=== PATIENT | female | born 2000 | race African-American/Black ===

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

== ENCOUNTER 2021-08-07 19:24 | Inpatient (IN) | payer MEDICAID, OTHER ==
[~2021-08-07] VITALS: Ht 175.3 cm; Wt 55.3 kg
[2021-08-07 20:30] LABS: BASOPHILS % (AUTO) 0.3 % (0.0-2.0); EOSINOPHILS % (AUTO) 0.1 % (1.0-6.0); HEMATOCRIT 38.9 % (36-46); LYMPHOCYTES # (AUTO) 1.3 K/uL (1.0-4.8); LYMPHOCYTES % (AUTO) 22.1 % (22.0-44.0); MEAN CORPUSCULAR HEMOGLOBIN 28.5 pg (26.0-34.0); MEAN CORPUSCULAR HGB CONC 33.5 G/dL (31.0-37.0); MEAN CORPUSCULAR VOLUME 85 fL (80-100); MONOCYTES # (AUTO) 0.4 K/uL (0.1-1.0); MONOCYTES % (AUTO) 7.1 % (2.0-9.0); NEUTROPHILS # (AUTO) 4.1 K/uL (1.8-7.7); NEUTROPHILS % (AUTO) 70.4 % (40.0-70.0); PLATELET COUNT (AUTO) 212 K/uL (150-450); RED BLOOD CELL COUNT(AUTO) 4.57 MIL/uL (4.00-5.20); RED CELL DISTRIBUTION WIDTH 13.7 % (11.5-14.5)
[2021-08-07 20:37] LABS: ANION GAP 10 mmol/L (8-16); CARBON DIOXIDE 25 mmol/L (22-29); CHLORIDE 103 mmol/L (98-107); CREATININE 0.82 mg/dL (0.60-1.30); GLOMERULAR FILTR. RATE CALC > 60 mL/min (>60); GLUCOSE,RANDOM 92 mg/dL (70-110); POTASSIUM 4.3 mmol/L (3.5-5.1); SODIUM SERUM 138 mmol/L (136-145); UREA NITROGEN, BLOOD 8 mg/dL (7-18)
[2021-08-07 20:47] LABS: ALANINE AMINOTRANSFERASE 11 U/L (12-78); ALBUMIN 3.8 g/dL (3.4-5.0); ALKALINE PHOSPHATASE 86 U/L (46-116); ASPARTATE AMINOTRANSFERASE 16 U/L (15-37); BILIRUBIN,TOTAL 0.3 mg/dL (0.1-1.0); HCG,QUANTITATIVE < 1 mIU/mL (0-6); TOTAL PROTEIN, SERUM 7.9 g/dL (6.4-8.2)
[2021-08-07 20:48] LABS: ACETAMINOPHEN < 2 mcg/mL (10-30)
[2021-08-07] MEDS ORDERED: ZOLPIDEM TARTRATE 10 MG TABLET PO PRN (21:30)
[2021-08-07 21:34] LABS: SALICYLATE < 2.8 mg/dL (2.8-20.0)
[2021-08-07 21:38] LABS: COVID AG,FIA SOURCE NASOPHARYNGEAL
[2021-08-07] MEDS ORDERED: ONDANSETRON HCL 4 MG/2 ML VIAL IVP ONE (22:15)
[2021-08-07 23:59] LABS: AMPHET/METH SCREEN,URINE NEGATIVE (NEGATIVE); BARBITURATE SCREEN, URINE NEGATIVE (NEGATIVE); BENZODIAZEPINES SCREEN,URINE NEGATIVE (NEGATIVE); CANNABINOID SCREEN,URINE POSITIVE (NEGATIVE); COCAINE SCREEN,URINE NEGATIVE (NEGATIVE); METHADONE SCREEN, URINE NEGATIVE (NEGATIVE); OPIATE SCREEN,URINE NEGATIVE (NEGATIVE)
[2021-08-08 00:03] LABS: APPEARANCE,URINE CLEAR (CLEAR); BILIRUBIN,URINE NEGATIVE (NEGATIVE); GLUCOSE, URINE (UA) NEGATIVE (NEGATIVE); KETONES,URINE 15 mg/dL (NEGATIVE); LEUKOCYTE ESTERASE ,URINE NEGATIVE (NEGATIVE); NITRATE,URINE NEGATIVE (NEGATIVE); OCCULT BLOOD,URINE NEGATIVE (NEGATIVE); PROTEIN,URINE NEGATIVE (NEGATIVE); UROBILINOGEN,URINE 0.2 mg/dL (<=1.0)
[2021-08-08 00:05] LABS: PHENCYCLIDINE SCREEN,URINE NEGATIVE (NEGATIVE)
[2021-08-08 02:35] VITALS: BP 132/80
[2021-08-08] MEDS ORDERED: PNEUMOCOCCAL VACCINE POLYVALENT 0.5 ML VIAL [PPSV23] IM. ONE (05:00)
[2021-08-08] MEDS ORDERED: MAGNESIUM HYDROXIDE SUSPENSION 30 ML UDCUP PO PRN (06:00)
[2021-08-08] MEDS ORDERED: BENZOCAINE/MENTHOL LOZENGE PO PRN (06:00)
[2021-08-08] MEDS ORDERED: ALBUTEROL SULFATE HFA 90 MCG/PUFF 8 GM INHALER IH PRN (06:00)
[2021-08-08] MEDS ORDERED: OMEPRAZOLE 20 MG CAPSULE PO PRN (06:00)
[2021-08-08] MEDS ORDERED: ONDANSETRON HCL 4 MG TABLET PO PRN (06:00)
[2021-08-08] MEDS ORDERED: PETROLATUM,WHITE 28 GM JELLY TP PRN (06:00)
[2021-08-08] MEDS ORDERED: CloNIDine HCL 0.1 MG TABLET PO PRN (06:00)
[2021-08-08] MEDS ORDERED: MAG HYDROX/AL HYDROX/SIMETH ES 30 ML SUSPENSION UDCUP PO PRN (06:00)
[2021-08-08] MEDS ORDERED: IBUPROFEN 600 MG TABLET PO PRN (06:00)
[2021-08-08] MEDS ORDERED: BACITRACIN 28 GM OINTMENT TP PRN (06:00)
[2021-08-08] MEDS ORDERED: ACETAMINOPHEN 325 MG TABLET PO PRN (06:00)
[2021-08-08] MEDS ORDERED: LOPERAMIDE HCL 2 MG CAPSULE PO PRN (06:00)
[2021-08-08] MEDS ORDERED: DOCUSATE SODIUM 100 MG CAPSULE PO PRN (06:00)
[2021-08-08 07:41] LABS: CHOL/HDL RATIO 3.1 (3.9-5.7)
[2021-08-08 09:52] VITALS: BP 107/60
[2021-08-08] MEDS: LORazepam 2 MG TABLET PO PRN ×2 (11:20→16:36)
[2021-08-08 16:16] VITALS: BP 114/62
[2021-08-08] MEDS: HALOPERIDOL 5 MG TABLET PO PRN (16:36)
[2021-08-09 09:03] VITALS: BP 92/58
[2021-08-09 16:00] VITALS: BP 96/60
[2021-08-09] MEDS: LORazepam 2 MG TABLET PO PRN (16:49)
[2021-08-09] MEDS: HALOPERIDOL 5 MG TABLET PO PRN (16:49)
[2021-08-10 08:08] VITALS: BP 100/56
[2021-08-10] MEDS: LORazepam 2 MG TABLET PO PRN (12:54)
[2021-08-10] MEDS: BuPROPion HCL 75 MG TABLET PO SCH (13:27)
[2021-08-10 16:34] VITALS: BP 96/52
[2021-08-11 08:02] VITALS: BP 106/60
[2021-08-11] MEDS: BuPROPion HCL 75 MG TABLET PO SCH (08:46)
[2021-08-11] MEDS: LORazepam 2 MG TABLET PO PRN (11:18)
[2021-08-11 16:53] VITALS: BP 103/58
[2021-08-12 08:00] VITALS: BP 119/67
[2021-08-12] MEDS: BuPROPion HCL 75 MG TABLET PO SCH (08:18)
[2021-08-12] MEDS: LORazepam 2 MG TABLET PO PRN (10:19)
[2021-08-12] MEDS ORDERED: BUPR75 PO (12:13)
== END 2021-08-12 14:50 | disposition home or self-care (01) | DRG 754 ==
LOC: EMS 19:25 → 3EX 08-08 02:00 → 3EI 08-10 14:00
PROVIDERS: ADMIT Psychiatry & Neurology Psychiatry; ATTEND Psychiatry & Neurology Psychiatry
DX: F32.9 Major depressive disorder, single episode, unspecified (principal); F12.90 Cannabis use, unspecified, uncomplicated; F41.9 Anxiety disorder, unspecified; F60.3 Borderline personality disorder; G47.00 Insomnia, unspecified; K59.00 Constipation, unspecified; T43.222A Poisoning by selective serotonin reuptake inhibitors, intentional self-harm, initial encounter; Z87.891 Personal history of nicotine dependence; Z91.51 Personal history of suicidal behavior; Z79.899 Other long term (current) drug therapy; Z91.018 Allergy to other foods; Y92.89 Other specified places as the place of occurrence of the external cause; Z20.822 Contact with and (suspected) exposure to COVID-19
CPT/HCPCS: 80053; 80061; 81003; 84702; 85025; 93005; 99285; G0378; G0480; G0481; J2405

== ENCOUNTER 2022-02-03 17:54 | Emergency (ER) | payer MEDICAID, OTHER ==
[~2022-02-03] VITALS: Ht 175.3 cm; Wt 62.5 kg
[~2022-02-03 17:54] MED LIST: BUPR-344 PO
[2022-02-03] MEDS ORDERED: PNV1TABL89 PO (18:04)
[2022-02-03 20:16] LABS: BASOPHILS % (AUTO) 0.3 % (0.0-2.0); EOSINOPHILS % (AUTO) 0.2 % (1.0-6.0); HEMATOCRIT 35.1 % (36-46); HEMOGLOBIN 11.7 g/dL (12.0-16.0); LYMPHOCYTES # (AUTO) 1.5 K/uL (1.0-4.8); LYMPHOCYTES % (AUTO) 22.5 % (22.0-44.0); MEAN CORPUSCULAR HEMOGLOBIN 28.2 pg (26.0-34.0); MEAN CORPUSCULAR HGB CONC 33.4 G/dL (31.0-37.0); MEAN CORPUSCULAR VOLUME 84 fL (80-100); MONOCYTES # (AUTO) 0.6 K/uL (0.1-1.0); MONOCYTES % (AUTO) 8.5 % (2.0-9.0); NEUTROPHILS # (AUTO) 4.6 K/uL (1.8-7.7); NEUTROPHILS % (AUTO) 68.5 % (40.0-70.0); PLATELET COUNT (AUTO) 194 K/uL (150-450); RED BLOOD CELL COUNT(AUTO) 4.16 MIL/uL (4.00-5.20); RED CELL DISTRIBUTION WIDTH 13.6 % (11.5-14.5)
[2022-02-03 20:25] LABS: ANION GAP 11 mmol/L (8-16); CALCIUM, TOTAL 8.9 mg/dL (8.8-10.5); CARBON DIOXIDE 26 mmol/L (22-29); CHLORIDE 102 mmol/L (98-107); GLUCOSE,RANDOM 95 mg/dL (70-110); POTASSIUM 3.8 mmol/L (3.5-5.1); SODIUM SERUM 139 mmol/L (136-145)
[2022-02-03 20:26] LABS: APPEARANCE,URINE TURBID (CLEAR); BILIRUBIN,URINE NEGATIVE (NEGATIVE); GLUCOSE, URINE (UA) NEGATIVE (NEGATIVE); KETONES,URINE TRACE mg/dL (NEGATIVE); LEUKOCYTE ESTERASE ,URINE SMALL (NEGATIVE); NITRATE,URINE NEGATIVE (NEGATIVE); OCCULT BLOOD,URINE NEGATIVE (NEGATIVE); PROTEIN,URINE 30-70 mg/dL (NEGATIVE); SPECIFIC GRAVITIY, URINE 1.023 (1.003-1.030); UROBILINOGEN,URINE <=1.0 mg/dL (<=1.0)
[2022-02-03 20:32] LABS: AMORPHOUS SEDIMENT,UR Many /LPF (None Seen); BACTERIA,URINE Moderate /HPF (None Seen); RBC,URINE 0-2 /HPF (0-2); SQUAMOUS EPITHELIAL CELL,UR Rare /LPF (None Seen)
[2022-02-03 20:35] LABS: GLOMERULAR FILTR. RATE CALC > 60 mL/min (>60)
[2022-02-03 20:42] LABS: AMPHET/METH SCREEN,URINE NEGATIVE (NEGATIVE); BARBITURATE SCREEN, URINE NEGATIVE (NEGATIVE); BENZODIAZEPINES SCREEN,URINE NEGATIVE (NEGATIVE); CANNABINOID SCREEN,URINE NEGATIVE (NEGATIVE); COCAINE SCREEN,URINE NEGATIVE (NEGATIVE); METHADONE SCREEN, URINE NEGATIVE (NEGATIVE); OPIATE SCREEN,URINE NEGATIVE (NEGATIVE); PHENCYCLIDINE SCREEN,URINE NEGATIVE (NEGATIVE)
[2022-02-03 20:57] LABS: ALANINE AMINOTRANSFERASE 14 U/L (12-78); ALBUMIN 3.1 g/dL (3.4-5.0); ALKALINE PHOSPHATASE 73 U/L (46-116); ASPARTATE AMINOTRANSFERASE 14 U/L (15-37); BILIRUBIN,TOTAL 0.3 mg/dL (0.1-1.0); HCG,QUANTITATIVE 19988 mIU/mL (0-6); LIPASE 78 U/L (73-393); TOTAL PROTEIN, SERUM 7.2 g/dL (6.4-8.2)
[2022-02-03 21:03] LABS: UREA NITROGEN, BLOOD 4 mg/dL (7-18)
[2022-02-03 21:40] VITALS: BP 115/64
== END 2022-02-03 21:56 | disposition home or self-care (01) ==
LOC: EMS 17:54
DX: O26.892 Other specified pregnancy related conditions, second trimester (principal); R10.2 Pelvic and perineal pain; F32.9 Major depressive disorder, single episode, unspecified; F41.9 Anxiety disorder, unspecified; Z79.899 Other long term (current) drug therapy; Z91.018 Allergy to other foods; Z3A.16 16 weeks gestation of pregnancy
CPT/HCPCS: 99284; 76801; 80053; 83690; 84702; 85025; 36415; 87086; 76817; 81025; 80307; 81001; G0480

== ENCOUNTER 2023-04-02 21:44 | Emergency (ER) | payer OTHER ==
[~2023-04-02] VITALS: Ht 175.3 cm; Wt 58.2 kg
[~2023-04-02 21:44] MED LIST changes: -BUPR-344 PO; +PNV1TABL89 PO
[2023-04-02 23:50] LABS: BASOPHILS % (AUTO) 0.4 % (0.0-2.0); EOSINOPHILS % (AUTO) 0.6 % (1.0-6.0); HEMATOCRIT 37.7 % (36-46); HEMOGLOBIN 12.3 g/dL (12.0-16.0); LYMPHOCYTES # (AUTO) 1.7 K/uL (1.0-4.8); LYMPHOCYTES % (AUTO) 32.3 % (22.0-44.0); MEAN CORPUSCULAR HEMOGLOBIN 27.8 pg (26.0-34.0); MEAN CORPUSCULAR HGB CONC 32.6 G/dL (31.0-37.0); MEAN CORPUSCULAR VOLUME 85 fL (80-100); MONOCYTES # (AUTO) 0.8 K/uL (0.1-1.0); MONOCYTES % (AUTO) 15.8 % (2.0-9.0); NEUTROPHILS # (AUTO) 2.7 K/uL (1.8-7.7); NEUTROPHILS % (AUTO) 50.9 % (40.0-70.0); PLATELET COUNT (AUTO) 169 K/uL (150-450); RED BLOOD CELL COUNT(AUTO) 4.41 MIL/uL (4.00-5.20); WHITE BLOOD COUNT (AUTO) 5.4 K/uL (4.5-11.0)
[2023-04-02 23:53] LABS: APPEARANCE,URINE CLEAR (CLEAR); BILIRUBIN,URINE NEGATIVE (NEGATIVE); COLOR,URINE YELLOW (YELLOW); GLUCOSE, URINE (UA) NEGATIVE (NEGATIVE); LEUKOCYTE ESTERASE ,URINE LARGE (NEGATIVE); NITRATE,URINE NEGATIVE (NEGATIVE); OCCULT BLOOD,URINE NEGATIVE (NEGATIVE); PH,URINE 5.5 (5.0-8.0); PROTEIN,URINE TRACE mg/dL (NEGATIVE); SPECIFIC GRAVITIY, URINE 1.035 (1.003-1.030)
[2023-04-03 00:01] LABS: BACTERIA,URINE Few /HPF (None Seen); RBC,URINE 0-2 /HPF (0-2)
[2023-04-03 00:02] LABS: SQUAMOUS EPITHELIAL CELL,UR Moderate /LPF (None Seen)
[2023-04-03 00:18] LABS: PLATELET MORPHOLOGY COMMENT GIANT PLTS PRESENT
[2023-04-03] MEDS ORDERED: LIDOCAINE/PF 1% 2 ML VIAL IM ONE (03:30)
[2023-04-03] MEDS ORDERED: CefTRIAXone SODIUM 1 GM/VIAL IM ONE (03:30)
[2023-04-03] MEDS ORDERED: AZITHROMYCIN 500 MG TABLET PO ONE (03:30)
[2023-04-03] MEDS ORDERED: POLY119P3 PO (04:25)
[2023-04-03] MEDS ORDERED: METR500 PO (04:26)
[2023-04-03] MEDS ORDERED: FLUC150T61 PO (04:27)
[2023-04-03 05:05] VITALS: BP 121/65; PULSE 69; RESP 18; TEMP 97.8
== END 2023-04-03 05:05 | disposition home or self-care (01) ==
LOC: EMS 21:44
DX: N39.0 Urinary tract infection, site not specified (principal); N76.0 Acute vaginitis; K59.00 Constipation, unspecified; R10.2 Pelvic and perineal pain; F12.90 Cannabis use, unspecified, uncomplicated; Z91.018 Allergy to other foods
CPT/HCPCS: 99285; 81001; 84702; 85025; 36415; 87086; 87186; 87491; 87591; 76856; 74022; 96372; J0696; J3490; Q9967

== ENCOUNTER 2023-12-13 18:58 | Emergency (ER) | payer OTHER ==
[~2023-12-13] VITALS: Ht 175.3 cm; Wt 63.6 kg
[~2023-12-13 18:58] MED LIST changes: +FLUC150T61 PO; +METR500 PO; +POLY119P3 PO
[2023-12-13 19:36] VITALS: BP 110/73; PULSE 86; RESP 14; TEMP 98.1
[2023-12-13 19:37] LABS: APPEARANCE,URINE TURBID (CLEAR); BILIRUBIN,URINE NEGATIVE (NEGATIVE); COLOR,URINE YELLOW (YELLOW); GLUCOSE, URINE (UA) TRACE mg/dL (NEGATIVE); LEUKOCYTE ESTERASE ,URINE LARGE (NEGATIVE); NITRATE,URINE NEGATIVE (NEGATIVE); OCCULT BLOOD,URINE LARGE (NEGATIVE); PROTEIN,URINE 300-600,SEE CONFIRM mg/dL (NEGATIVE); SPECIFIC GRAVITIY, URINE 1.032 (1.003-1.030); UROBILINOGEN,URINE <=1.0 mg/dL (<=1.0)
[2023-12-13 19:43] LABS: BACTERIA,URINE Few /HPF (None Seen); RBC,URINE 26-50 /HPF (0-2); SQUAMOUS EPITHELIAL CELL,UR Moderate /LPF (None Seen); SULFOSALICYLIC ACID,URINE 3+ (Negative); WBC,URINE 26-50 /HPF (0-5)
[2023-12-13 19:53] LABS: HCG,QUAL URINE NEGATIVE (NEGATIVE)
[2023-12-13] MEDS ORDERED: PHEN-674 PO (21:16)
[2023-12-13] MEDS ORDERED: CEPH-558 PO (21:16)
== END 2023-12-13 21:24 | disposition home or self-care (01) ==
LOC: EMS 19:16
DX: N39.0 Urinary tract infection, site not specified (principal); F60.3 Borderline personality disorder; F12.90 Cannabis use, unspecified, uncomplicated; Z91.018 Allergy to other foods
CPT/HCPCS: 81001; 81002; 84703; 87086; 87186; 99283

== ENCOUNTER 2024-01-31 00:22 | Emergency (ER) | payer OTHER ==
[~2024-01-31] VITALS: Ht 175.3 cm; Wt 63.6 kg
[~2024-01-31 00:22] MED LIST changes: +CEPH-558 PO; +PHEN-674 PO
[2024-01-31 00:24] VITALS: TEMP 97.9
[2024-01-31 01:30] VITALS: BP 127/79; PULSE 88; RESP 16
== END 2024-01-31 01:30 | disposition home or self-care (01) ==
LOC: EMS 00:24
DX: S00.531A Contusion of lip, initial encounter (principal); F12.90 Cannabis use, unspecified, uncomplicated; Z91.013 Allergy to seafood; Y08.89XA Assault by other specified means, initial encounter; Y93.89 Activity, other specified; Y92.89 Other specified places as the place of occurrence of the external cause; Y99.8 Other external cause status
CPT/HCPCS: 99281; Z7502

== ENCOUNTER 2024-08-04 03:12 | Emergency (ER) | payer OTHER ==
[~2024-08-04] VITALS: Ht 175.3 cm; Wt 59.1 kg
[2024-08-04 04:06] VITALS: BP 104/67; PULSE 110; RESP 16; O2SAT 98
== END 2024-08-04 06:30 | disposition left against medical advice (07) ==
LOC: EMS 03:14
DX: M25.522 Pain in left elbow (principal); Z53.21 Procedure and treatment not carried out due to patient leaving prior to being seen by health care provider
CPT/HCPCS: 84703

== ENCOUNTER 2024-10-31 20:57 | Emergency (ER) | payer OTHER ==
[~2024-10-31] VITALS: Ht 175.3 cm; Wt 59.5 kg
[2024-10-31 21:21] VITALS: TEMP 98.8
[2024-10-31 22:40] LABS: BASOPHILS % (AUTO) 0.4 % (0.0-2.0); EOSINOPHILS % (AUTO) 0.3 % (1.0-6.0); HEMATOCRIT 40.1 % (36-46); HEMOGLOBIN 12.9 g/dL (12.0-16.0); LYMPHOCYTES # (AUTO) 2.1 K/uL (1.0-4.8); LYMPHOCYTES % (AUTO) 21.1 % (22.0-44.0); MEAN CORPUSCULAR HEMOGLOBIN 27.2 pg (26.0-34.0); MEAN CORPUSCULAR HGB CONC 32.1 G/dL (31.0-37.0); MEAN CORPUSCULAR VOLUME 85 fL (80-100); MONOCYTES # (AUTO) 0.7 K/uL (0.1-1.0); NEUTROPHILS # (AUTO) 7.2 K/uL (1.8-7.7); NEUTROPHILS % (AUTO) 71.2 % (40.0-70.0); PLATELET COUNT (AUTO) 268 K/uL (150-450); RED BLOOD CELL COUNT(AUTO) 4.74 MIL/uL (4.00-5.20); RED CELL DISTRIBUTION WIDTH 15.3 % (11.5-14.5); WHITE BLOOD COUNT (AUTO) 10.2 K/uL (4.5-11.0)
[2024-10-31] MEDS: MORPHINE SULFATE 4 MG/ML SYRINGE IVP ONE (22:40)
[2024-10-31] MEDS: ONDANSETRON HCL 4 MG/2 ML VIAL IVP ONE (22:40)
[2024-10-31] MEDS: PERTUSS(ACELL),DIPH,TET/PF 0.5 ML SYRINGE [ADULT] IM. ONE (22:41)
[2024-11-01] MEDS: KETOROLAC TROMETHAMINE 30 MG/ML VIAL IVP ONE (00:01)
[2024-11-01] MEDS: BACITRACIN 0.9 GM PACKET OINTMENT TP ONE (00:02)
[2024-11-01] MEDS: LIDOCAINE 1% 10 ML VIAL SQ ONE (00:02)
[2024-11-01 03:30] VITALS: BP 108/48; PULSE 88; RESP 16; O2SAT 99
[2024-11-01] MEDS ORDERED: PREN-223 PO (04:30)
[2024-11-01] MEDS ORDERED: CORTSUSP AD (04:30)
[2024-11-01] MEDS ORDERED: IBUP-1554 PO (04:30)
[2024-11-01] MEDS ORDERED: BACI28.410 TP (04:30)
== END 2024-11-01 04:30 | disposition home or self-care (01) ==
LOC: EMS 20:57
DX: O9A.211 Injury, poisoning and certain other consequences of external causes complicating pregnancy, first trimester (principal); S01.81XA Laceration without foreign body of other part of head, initial encounter; S01.311A Laceration without foreign body of right ear, initial encounter; F12.90 Cannabis use, unspecified, uncomplicated; F41.9 Anxiety disorder, unspecified; Z3A.01 Less than 8 weeks gestation of pregnancy; W18.39XA Other fall on same level, initial encounter; Y93.89 Activity, other specified; Y92.89 Other specified places as the place of occurrence of the external cause; Y99.8 Other external cause status
CPT/HCPCS: 99284; 96374; 96375 ×2; 84702; 84703; 85025; 36415; 90715; 90471; 96372; J2270; J2405; J1885; J3490

== ENCOUNTER 2024-12-17 10:34 | Emergency (ER) | payer OTHER ==
[~2024-12-17] VITALS: Ht 175.3 cm; Wt 59.1 kg
[~2024-12-17 10:34] MED LIST changes: +BACI28.410 TP; +CORTSUSP AD; +IBUP-1554 PO; +PREN-223 PO
[2024-12-17 10:37] VITALS: BP 101/62; PULSE 65; RESP 18; TEMP 98.4; O2SAT 98
[2024-12-17] MEDS ORDERED: CIPROFLOXACIN HCL 0.2%/HYDROCORT 1% 10 ML OTIC SUSPENSION AD ONE (11:00)
[2024-12-17 11:19] LABS: BASOPHILS % (AUTO) 0.4 % (0.0-2.0); EOSINOPHILS % (AUTO) 0.9 % (1.0-6.0); HEMATOCRIT 39.1 % (36-46); HEMOGLOBIN 12.7 g/dL (12.0-16.0); LYMPHOCYTES # (AUTO) 1.3 K/uL (1.0-4.8); LYMPHOCYTES % (AUTO) 21.9 % (22.0-44.0); MEAN CORPUSCULAR HEMOGLOBIN 27.5 pg (26.0-34.0); MEAN CORPUSCULAR HGB CONC 32.6 G/dL (31.0-37.0); MEAN CORPUSCULAR VOLUME 85 fL (80-100); MONOCYTES # (AUTO) 0.4 K/uL (0.1-1.0); MONOCYTES % (AUTO) 7.2 % (2.0-9.0); NEUTROPHILS # (AUTO) 4.1 K/uL (1.8-7.7); NEUTROPHILS % (AUTO) 69.6 % (40.0-70.0); PLATELET COUNT (AUTO) 226 K/uL (150-450); RED BLOOD CELL COUNT(AUTO) 4.62 MIL/uL (4.00-5.20); RED CELL DISTRIBUTION WIDTH 15.2 % (11.5-14.5); WHITE BLOOD COUNT (AUTO) 5.9 K/uL (4.5-11.0)
[2024-12-17] MEDS: NEOMYCIN/POLYMYXIN B/HYDROCORT 10 ML OTIC SOLUTION AD ONE (11:19)
[2024-12-17 11:24] LABS: ANION GAP 5 mmol/L (8-16); CALCIUM, TOTAL 9.2 mg/dL (8.8-10.5); CARBON DIOXIDE 30 mmol/L (22-29); CHLORIDE 102 mmol/L (98-107); CREATININE 0.91 mg/dL (0.60-1.30); GLOMERULAR FILTR. RATE CALC > 60 mL/min (>60); GLUCOSE,RANDOM 68 mg/dL (70-110); POTASSIUM 3.5 mmol/L (3.5-5.1); SODIUM SERUM 137 mmol/L (136-145); UREA NITROGEN, BLOOD 5 mg/dL (7-18)
[2024-12-17 11:29] LABS: ALBUMIN 3.4 g/dL (3.4-5.0); BILIRUBIN,DIRECT 0.1 mg/dL (0.00-0.20); BILIRUBIN,TOTAL 0.3 mg/dL (0.1-1.0); TOTAL PROTEIN, SERUM 7.7 g/dL (6.4-8.2)
[2024-12-17 11:32] LABS: PREGNANCY RESULT, SERUM POSITIVE (NEGATIVE)
[2024-12-17 12:08] LABS: APPEARANCE,URINE CLEAR (CLEAR); BILIRUBIN,URINE NEGATIVE (NEGATIVE); COLOR,URINE LIGHT YELLOW (YELLOW); GLUCOSE, URINE (UA) NEGATIVE (NEGATIVE); KETONES,URINE NEGATIVE (NEGATIVE); LEUKOCYTE ESTERASE ,URINE LARGE (NEGATIVE); NITRATE,URINE NEGATIVE (NEGATIVE); OCCULT BLOOD,URINE LARGE (NEGATIVE); PH,URINE 7.5 (5.0-8.0); PROTEIN,URINE NEGATIVE (NEGATIVE); SPECIFIC GRAVITIY, URINE 1.009 (1.003-1.030); UROBILINOGEN,URINE <=1.0 mg/dL (<=1.0)
[2024-12-17 12:19] LABS: BACTERIA,URINE Moderate /HPF (None Seen); SQUAMOUS EPITHELIAL CELL,UR Many /LPF (None Seen)
[2024-12-17] MEDS: LIDOCAINE/PF 1% 2 ML VIAL IM ONE (12:33)
[2024-12-17] MEDS: DOXYCYCLINE HYCLATE 100 MG TABLET PO ONE (12:34)
[2024-12-17] MEDS: CefTRIAXone SODIUM 1 GM/VIAL IM ONE (12:34)
[2024-12-17 12:37] LABS: RAPID PLASMA REAGIN NONREACTIVE (NONREACTIVE)
[2024-12-17] MEDS ORDERED: CORTSOL AD (12:54)
[2024-12-17] MEDS ORDERED: DOXY-354 PO (12:54)
[2024-12-17] MEDS ORDERED: CEPH-558 PO (12:54)
[2024-12-17] MEDS ORDERED: EMTR1TAB53 PO (12:54)
[2024-12-17] MEDS ORDERED: ONDA-104 PO (12:54)
[2024-12-17] MEDS ORDERED: RALT400T PO (12:54)
[2024-12-17] MEDS: RALTEGRAVIR 400 MG TABLET PO ONE (13:16)
[2024-12-17] MEDS: EMTRICITABINE/TENOFOVIR 200-300 MG TABLET PO ONE (13:16)
== END 2024-12-17 13:46 | disposition home or self-care (01) ==
LOC: EMS 10:35
DX: H60.91 Unspecified otitis externa, right ear (principal); A64 Unspecified sexually transmitted disease; R10.2 Pelvic and perineal pain; R30.0 Dysuria; F12.90 Cannabis use, unspecified, uncomplicated; F10.90 Alcohol use, unspecified, uncomplicated; Z88.6 Allergy status to analgesic agent; Z91.018 Allergy to other foods; Y90.9 Presence of alcohol in blood, level not specified
CPT/HCPCS: 99284; 86592; 80048; 80076; 81001; 84702; 84703; 85025; 87086; 87210; 36415; 87491; 87591; 96372; 87389; J0696; J3490

== ENCOUNTER 2025-06-30 22:37 | Emergency (ER) | payer OTHER ==
[~2025-06-30] VITALS: Ht 175.3 cm; Wt 62.2 kg
[~2025-06-30 22:37] MED LIST changes: -BACI28.410 TP; +CORTSOL AD; -CORTSUSP AD; +DOXY-354 PO; +EMTR1TAB53 PO; -FLUC150T61 PO; -IBUP-1554 PO; -METR500 PO; +ONDA-104 PO; -PHEN-674 PO; -PNV1TABL89 PO; -POLY119P3 PO; -PREN-223 PO; +RALT400T PO
[2025-06-30 22:40] VITALS: BP 131/82; PULSE 99; RESP 18; TEMP 98.1; O2SAT 100
[2025-07-01] MEDS ORDERED: CETI10TA77 PO (00:21)
[2025-07-01] MEDS: PSEUDOEPHED/CETIRIZINE 120-5MG ER TABLET PO ONE (00:41)
== END 2025-07-01 00:47 | disposition home or self-care (01) ==
LOC: EMS 22:39
DX: H65.193 Other acute nonsuppurative otitis media, bilateral (principal); H69.93 Unspecified Eustachian tube disorder, bilateral; J06.9 Acute upper respiratory infection, unspecified; B97.89 Other viral agents as the cause of diseases classified elsewhere; F31.9 Bipolar disorder, unspecified; F12.90 Cannabis use, unspecified, uncomplicated; F14.90 Cocaine use, unspecified, uncomplicated; F15.90 Other stimulant use, unspecified, uncomplicated; Z79.624 Long term (current) use of inhibitors of nucleotide synthesis; Z79.899 Other long term (current) drug therapy; Z88.8 Allergy status to other drugs, medicaments and biological substances; Z91.018 Allergy to other foods
CPT/HCPCS: 99282; Z7502; Z7610